=== PATIENT | male | born 1960 | race Caucasian/White ===

== ENCOUNTER → 2023-01-17 14:33 | Outpatient (BNVA) | payer OTHER, SELFPAY | PROVIDERS: Visit Provider Physician Assistant Medical | DX: S61.312A Laceration without foreign body of right middle finger with damage to nail, initial encounter (principal); W26.9XXA Contact with unspecified sharp object(s), initial encounter; Z23 Encounter for immunization | CPT/HCPCS: 12001; 90715; 99204 ==

== ENCOUNTER → 2023-01-19 13:55 | Outpatient (BNVA) | payer OTHER, SELFPAY | PROVIDERS: Visit Provider Physician Assistant Medical | DX: S61.212A Laceration without foreign body of right middle finger without damage to nail, initial encounter (principal); W26.9XXA Contact with unspecified sharp object(s), initial encounter | CPT/HCPCS: 99213 ==

== ENCOUNTER → 2023-01-21 13:45 | Outpatient (BNVA) | payer OTHER, SELFPAY | PROVIDERS: Visit Provider Physician Assistant | DX: Z48.02 Encounter for removal of sutures (principal); S61.312A Laceration without foreign body of right middle finger with damage to nail, initial encounter; W26.9XXA Contact with unspecified sharp object(s), initial encounter | CPT/HCPCS: 99212; 99213 ==